=== PATIENT | female | born 1955 | race African-American/Black ===

== ENCOUNTER 2020-02-13 09:23 | Emergency (ER) | payer MEDICAID, OTHER ==
[~2020-02-13] VITALS: Ht 152.4 cm; Wt 42.6 kg
--- NOTE | 2020-02-13 09:35 | NUR ---
Dr Smith at the bedside for MSE.
[2020-02-13] MEDS ORDERED: diphenhydrAMINE 50 MG/1 ML VIAL IM ONE (09:45)
[2020-02-13] MEDS ORDERED: METOCLOPRAMIDE HCL 10 MG/2 ML VIAL IV ONE (09:45)
--- NOTE | 2020-02-13 09:55 | NUR ---
PT out of ER for CT accompained by RT.
[2020-02-13] MEDS ORDERED: METOCLOPRAMIDE HCL 10 MG/2 ML VIAL ONE (10:00)
[2020-02-13] MEDS ORDERED: diphenhydrAMINE 50 MG/1 ML VIAL ONE (10:00)
[2020-02-13 10:05] LABS: CREATININE 0.6 mg/dL (0.6-1.3); POTASSIUM 4.2 mmol/L (3.5-5.1)
[2020-02-13 10:19] LABS: BILIRUBIN,DIRECT 0.2 mg/dL (0.0-0.2); BILIRUBIN,TOTAL 0.5 mg/dL (0.2-1.0); TOTAL PROTEIN, SERUM 7.4 g/dL (6.4-8.2)
[2020-02-13 10:37] LABS: BASOPHILS # (AUTO) 0.1 K/uL (0.0-8.0); EOSINOPHILS # (AUTO) 0.4 K/uL (0.0-0.7); HEMATOCRIT 33.5 % (31.2-41.9); HEMOGLOBIN 10.1 g/dL (10.9-14.3); LYMPHOCYTES # (AUTO) 1.1 K/uL (20.0-40.0); MEAN CORPUSCULAR HEMOGLOBIN 23.3 uug (24.7-32.8); MEAN CORPUSCULAR HGB CONC 30 g/dL (32.3-35.6); MEAN CORPUSCULAR VOLUME 76.9 fL (75.5-95.3); MONOCYTES % (AUTO) 15.9 % (0.0-11.0); NEUTROPHILS # (AUTO) 3.5 K/uL (1.8-8.9); NEUTROPHILS % (AUTO) 58.1 % (38.5-71.5); PLATELET COUNT (AUTO) 285 K/uL (179-408); RED BLOOD CELL COUNT(AUTO) 4.36 MIL/uL (3.63-4.92)
[2020-02-13] MEDS ORDERED: DILT30TA2 GT (11:01)
[2020-02-13] MEDS ORDERED: FAMO-132 GT (11:01)
[2020-02-13] MEDS ORDERED: METO25TA6 GT (11:01)
[2020-02-13] MEDS ORDERED: ACET-2605 GT (11:01)
[2020-02-13] MEDS ORDERED: LORA-258 GT (11:01)
[2020-02-13] MEDS ORDERED: CRANBERRY FRUIT GT (11:01)
[2020-02-13] MEDS ORDERED: ATOR10TA GT (11:01)
[2020-02-13] MEDS ORDERED: FERR325T28 GT (11:01)
[2020-02-13] MEDS ORDERED: DOCU100C36 GT (11:01)
[2020-02-13] MEDS ORDERED: BISA10SU61 RC (11:01)
[2020-02-13] MEDS ORDERED: ENOX40DI SUBCUT (11:01)
[2020-02-13] MEDS ORDERED: ASPI81TA31 GT (11:01)
[2020-02-13] MEDS ORDERED: CHOL10002 GT (11:01)
[2020-02-13] MEDS ORDERED: ACET-2154 GT (11:01)
[2020-02-13] MEDS ORDERED: PARO10TA86 GT (11:01)
[2020-02-13] MEDS ORDERED: NA P133E RC (11:01)
[2020-02-13] MEDS ORDERED: IPRA4AER IH (11:01)
[2020-02-13] MEDS ORDERED: SUCR1ORA15 GT (11:01)
[2020-02-13] MEDS ORDERED: SIME80TA15 GT (11:01)
[2020-02-13] MEDS ORDERED: MULT-213 PO (11:01)
[2020-02-13] MEDS ORDERED: MAGN400O6 PO (11:01)
--- NOTE | 2020-02-13 11:04 | NUR ---
Paged Dr Ocampo for admit, awaiting call back.
--- NOTE | 2020-02-13 11:05 | NUR ---
Pt states headache is gone. Large BM x1.
[2020-02-13] MEDS ORDERED: ASPIRIN 81 MG TAB.CHEW PO ONE (11:15)
--- NOTE | 2020-02-13 11:16 | NUR ---
altagracia from [facility] called, information provided. altagracia will call back for details
[2020-02-13] MEDS ORDERED: ASPIRIN 81 MG TAB.CHEW ONE (11:31)
--- NOTE | 2020-02-13 11:43 | NUR ---
Guerita from [facility] called back and sais the pt [facility].
--- NOTE | 2020-02-13 11:50 | NUR ---
Pt provided lunch, able to feed self. No difficulty w/ swallowing.
[2020-02-13] MEDS ORDERED: LORAZEPAM 0.5 MG TABLET PO ONE (12:15)
[2020-02-13] MEDS ORDERED: LORAZEPAM 0.5 MG TABLET ONE (12:22)
--- NOTE | 2020-02-13 12:40 | NUR ---
Patient is resting comfortably in bed with eyes closed, NAD noted.
--- NOTE | 2020-02-13 15:01 | NUR ---
Report given to Facility Rn, Pepper. pt is aware of transer and verbal consent given.
--- NOTE | 2020-02-13 15:40 | NUR ---
Recieve a call from Pepper, pt's Rn, regarding pt's belonging. Placed a call to [facility] and spoke to rose. Was adviced to call [address] [place] [phone] ambulance to arrange pt's belongings transfer.
--- NOTE | 2020-02-13 15:46 | NUR ---
Report given to transfering certified endoscopy technician as well as RT. Chart copies sent w/ Pt. All belongings sent w/ pt.
--- NOTE | 2020-02-13 15:53 | NUR ---
Pt's belonging was left in the room by assisted living coordinator.
[2020-02-13 16:08] LABS: EOSINOPHILS % (MANUAL) 3 % (0-8); LYMPHOCYTES % (MANUAL) 20 % (20-40); MONOCYTES % (MANUAL) 16 % (2-10); NEUTROPHILS % (MANUAL) 61 % (42-75)
--- NOTE | 2020-02-13 17:55 | NUR ---
Placed a call to [address] [place] [id number] ambulance and spoke to Qi. Per rep. pt's belongings will be picked up and taken to transfering facility([facility]), as soon as ambulance availibity.
== END 2020-02-13 15:58 | disposition short-term general hospital (02) ==
LOC: ER 09:23
DX: R07.9 Chest pain, unspecified (principal); R51 Headache; Z88.6 Allergy status to analgesic agent; Z88.8 Allergy status to other drugs, medicaments and biological substances; J44.9 Chronic obstructive pulmonary disease, unspecified; Z93.0 Tracheostomy status; Z99.11 Dependence on respirator [ventilator] status; Z74.01 Bed confinement status; D72.810 Lymphocytopenia; R74.8 Abnormal levels of other serum enzymes; D50.9 Iron deficiency anemia, unspecified; R91.8 Other nonspecific abnormal finding of lung field; Z20.828 Contact with and (suspected) exposure to other viral communicable diseases; R06.2 Wheezing
CPT/HCPCS: 36415; 70450; 71045; 80048; 80076; 83605; 83880; 84484 ×2; 85025; 87040; 87426; 93005; 96372; 96374; 99285; J1200; J2765; 70030-TC; A4663